=== PATIENT | male | born 1960 | race Caucasian/White ===

== ENCOUNTER → 2018-07-11 | Day surgery (SDC) | payer MEDICAID ==
[~2018-07-11] MED LIST: INDOMETHACIN 50 MG SUPP PR PRN; LIDOCAINE 1% 2 ML INJ ID PRN; LIDOCAINE 1% 2 ML INJ ONE; LR 1,000 ML IV ONE; MIDAZOLAM 2 MG/2 ML VIAL ONE; NS 500 ML IV SCH; PROPOFOL 200 MG/20 ML VIAL ONE; fentaNYL 100 MCG/2 ML INJ ONE
--- NOTE | 2018-07-11 13:33 | PDGENHP ---
History & Physical Chief Complaint: phx of polyps History of Present Illness: 57 year old male presents for surveillance of complex polyp s/p resection in cecum- 20 and 10mm Pertinent Past, Social, Family History: See anesthesiology note for details. Relevant Physical Exam: HEENT: anicteric. CV: RRR +s1s2. Lungs: CTAB. Abd: soft, nt, + Bs Cardiorespiratory Assessment: ASA 2
--- NOTE | 2018-07-11 13:43 | PDANEPAE ---
ANE History of Present Illness h/o polyps, screening at 6mo ANE Past Medical History - Cardiovascular History Hx Hypertension: No Hx Arrhythmias: No Hx Chest Pain: No Hx Coronary Artery / Peripheral Vascular Disease: No Hx CHF / Valvular Disease: No Hx Palpitations: No - Pulmonary History Hx COPD: No Hx Asthma/Reactive Airway Disease: No Hx Recent Upper Respiratory Infection: No Hx Oxygen in Use at Home: No Hx Sleep Apnea: No Sleep Apnea Screening Result - Last Documented: Negative Pulmonary History Comment: QUIT SMOKING IN MARCH NOW STILL HAVING 2 A DAY - Neurologic History Hx Cerebrovascular Accident: No Hx Seizures: No Hx Dementia: No - Endocrine History Hx Diabetes: No Hypothyroid: Yes Endocrine History Comment: SHOULD BE ON THYROID MEDICATION NOT CURRENTLY TAKING - Renal History Hx Renal Disorders: No - Liver History Hx Hepatic Disorders: No - Neurological & Psychiatric Hx Hx Neurological and Psychiatric Disorders: No - Cancer History Hx Cancer: No - Congenital Disorder History Hx Congenital Disorders: No - GI History Hx Gastrointestinal Disorders: Yes Gastrointestinal History Comment: HX OF COLON POLYPS - Other Health History Other Health History: NEG - Chronic Pain History Chronic Pain: No - Surgical History Prior Surgeries: COLONOSCOPY WITH POLYP REMVL. LT ORCHICHECTOMY. TONSILLECTOMY ANE Review of Systems Review of Systems: - Exercise capacity METS (RN): 6 METS ANE Patient History - Allergies Allergies/Adverse Reactions: No Known Allergies Allergy (Unverified 04/12/16 19:10) - Home Medications Home Medications: NK [No Known Home Meds] 04/12/16 [Last Taken Unknown] - NPO status NPO Since - Liquids (Date): 07/11/18 NPO Since - Liquids (Time): 04:00 NPO Since - Solids (Date): 07/10/18 NPO Since - Solids (Time): 09:00 - Smoking Hx Smoking Status: Light smoker ANE Labs/Vital Signs - Vital Signs Blood Pressure: 131/85 Heart Rate: 95 Respiratory Rate: 22 O2 Sat (%): 94 Height: 180.34 cm Weight: 88.451 kg
--- NOTE | 2018-07-11 14:29 | GIREPORT ---
[facility] Surgical Services - Endoscopy Department Patient Name: Jon Delgado Procedure Date: 07/11/2018 1:36 PM Patient Type: Outpatient Attending MD/ ER Physician: Darnell Campos MD Procedure: Colonoscopy Indications: High risk colon cancer surveillance: Personal history of colonic polyps Patient Profile: 57 year old male with a personal history of cecal polyps presents for surveillance colonoscopy. Providers: Darnell Campos MD Medicines: Monitored Anesthesia Care Complications: No immediate complications. Estimated blood loss: Minimal. Description of Procedure: After obtaining informed consent, the scope was passed under direct vis ion. Throughout the procedure, the patient's blood pressure, pulse, and oxyg en saturations were monitored continuously. The Colonoscope with irrigatio n channel was introduced through the anus and advanced to the cecum, identified by appendiceal orifice and ileocecal valve. The colonoscopy was performed without difficulty. The patient tolerated the procedure well. The quality of the bowel preparation was good. The ileocecal valve, appendi ceal orifice, and rectum were photographed. Findings: The perianal and digital rectal examinations were normal. Pertinent negatives include no palpable rectal lesions. Multiple diverticula were found in the sigmoid colon and descending col on. A 10 mm polypoid lesion was found in the cecum. The polyp was carpet-li ke and not continous. It appeared to be remnant polyp The polyp was remove d with a piecemeal technique using a hot snare. APC was utilized on the e dges. Resection and retrieval were complete. To close a defect after polypect julienne, three hemostatic clips were successfully placed (MR conditional). Estimated Blood Loss: Estimated blood loss was minimal. Post Op Diagnosis: - Diverticulosis in the sigmoid colon and in the descending colon. - One 10 mm polyp in the cecum, removed piecemeal using a hot snare. Resected and retrieved. Recommendation: - Discharge patient to home (with escort). - Resume previous diet. - Continue present medications. - Repeat colonoscopy in 1 year for surveillance. - Await pathology results. - Use fiber, for example Citrucel, Fibercon, Konsyl or Metamucil. - Thank you for allowing me to participate in the care of your patient. Attending Participation: I personally performed the entire procedure. Darnell Campos MD Darnell Campos MD 07/11/2018 2:28:44 PM This report has been signed electronicallyDarnell Campos MD Number of Addenda: 0 Note Initiated On: 07/11/2018 1:36 PM Total Procedure Duration Time 0 hours 19 minutes 3 seconds [email or web address]
[2018-07-11 15:14] VITALS: BP 138/81
--- NOTE | 2018-07-11 15:40 | POSTANESTH ---
Post Anesthetic Evaluation Cardiovascular Status: Normal, Stable Respiratory Status: Normal, Stable Level of Consciousness/Mental Status: Can Participate in Eval Pain Control: Adequate, Prn Tx Ordered Nausea/Vomiting Control: Adequate, Prn Tx Ordered Complications Possibly Related to Anesthesia: None Noted
== END | disposition home or self-care (01) ==
LOC: FSGY 11:42
PROVIDERS: ATTEND Internal Medicine Gastroenterology
PROC: 0DBH8ZX Excision of Cecum, Via Natural or Artificial Opening Endoscopic, Diagnostic (ICD-10-PCS; principal; 2018-07-11 13:15)
DX: D12.0 Benign neoplasm of cecum (principal); E03.9 Hypothyroidism, unspecified; F17.200 Nicotine dependence, unspecified, uncomplicated
CPT/HCPCS: J2250; J2704; J3010